=== PATIENT | female | born 1985 | race African-American/Black ===

== ENCOUNTER 2017-09-29 02:56 | Emergency (ER) | payer MEDICAID ==
--- NOTE | 2017-09-29 03:37 | ED Physician Chart ---
ED Chief Complaint/HPI - Patient Information Date Seen:: 09/29/17 Time Seen:: 03:25 Chief Complaint:: lower abdominal crampy pain History of Present Illness:: Patient developed lower abdominal crampy pain with the onset of her menstrual period 3 days ago. No vomiting or diarrhea. Allergies:: Allergies Allergy/AdvReac Type Severity Reaction Status Date / Time egg Allergy Verified 09/29/17 03:30 shrimp Allergy Verified 09/29/17 03:30 Vitals:: Vital Signs - 8 hr 09/29/17 03:00 Temp 97.9 F HR 77 RR 16 BP 114/77 O2 Sat % 99 Historian:: Patient Review:: Nurse's Note Reviewed ED Review of Systems - Review of Systems General/Constitutional: No fever, No chills Skin: No skin lesions Head: No headache Eyes: No loss of vision ENT: No earache Neck: No neck pain Cardio Vascular: No chest pain Pulmonary: No SOB GI: No nausea, No vomiting, No diarrhea G/U: No dysuria Electrical Service Technician: Other (see history) Musculoskeletal: No bone or joint pain Endocrine: No polyuria, No polydipsia Psychiatric: No prior psych history Hematopoietic: No bruising Allergic/Immuno: No urticaria Neurological: No syncope, No focal symptoms ED Past Medical History - Past Medical History Past Medical History: Asthma/COPD, Thyroid disorder, Other (aparathyroidism) Family History: Diabetes Melitus, HTN Social History: Alcohol, Other (drinks alcohol occasionally) Surgical History: None Psychiatricy History: None Medication: Reviewed Family Medical History - Family Member Mother History Unknown: Yes ED Physical Exam - Physical Examination General/Constitutional: Awake, Well-developed, well-nourished, Alert, No distress, GCS 15, Non-toxic appearing, Ambulatory Head: Atraumatic Eyes: Lids, conjuctiva normal, PERRL, EOMI Skin: Nl inspection, No rash, No skin lesions, No ecchymosis, Well hydrated, No lymphadenopathy ENMT: External ears, nose nl, Nasal exam nl, Lips, teeth, gums nl Neck: Nontender, Full ROM w/o pain, No JVD, No nuchal rigidity, No bruit, No mass, No stridor Respiratory: Nl effort/Exclusion, Clear to Auscultation, No Wheeze/Rhonchi/Rales Cardio Vascular: RRR, No murmur, gallop, rubs, NL S1 S2 GI: No organomegaly, No hernia, Normal BS's, Nondistended, No mass/bruits, No McBurney tenderness Other GI comments:: one out of 4 lower abdominal tenderness : No CVA tenderness Extremities: No tenderness or effusion, Full ROM, normal strength in all extremities, No edema, Normal digits & nails Neuro/Psych: Alert/oriented, DTR's symmetric, Normal sensory exam, Normal motor strength, Judgement/insight normal, Mood normal, Normal gait, No focal deficits Misc: Normal back, No paraspinal tenderness ED Labs/Radiology/EKG Results - Lab Results Results: Laboratory Tests 09/29/17 03:28 POC Ur Test Negative ED Septic Shock - . Is Septic Shock (SBP<90, OR Lactate>4 mmol\L) present?: No - <6hrs of presentation: Vital Signs: Vital Signs - 8 hr 09/29/17 03:00 Temp 97.9 F HR 77 RR 16 BP 114/77 O2 Sat % 99 ED Reassessment (Disposition) - Diagnosis Diagnosis:: Dysmenorrhea - Aftercare/Follow up Instructions Aftercare/Follow-Up Instructions:: Refer to Discharge Instructions Medication Prescribed:: Patient prescribed ibuprofen 800 mg #30 to take 1 3 times a day as necessary and per her request levothyroxine 50 g #30 to take 1 daily. Patient states she misplaced her levothroxine - Patient Disposition Discharge/Transfer:: Home Condition at Disposition:: Stable, Improved ED Discharge Plan - Patient Disposition Instructions: Dysmenorrhea, [id number] Additional Instructions: follow up with your primary medical doctor rosanne take prescribed medications as ordered
== END 2017-09-29 03:35 | disposition home or self-care (01) ==
LOC: ER 02:56
DX: N94.6 Dysmenorrhea, unspecified (principal); E07.9 Disorder of thyroid, unspecified; Z91.012 Allergy to eggs; Z91.013 Allergy to seafood
CPT/HCPCS: 81025-TC; Z7502